=== PATIENT | male | born 1950 | race Caucasian/White ===

== ENCOUNTER 2019-01-05 08:12 | Emergency (ER) | payer MEDICARE, OTHER ==
--- NOTE | 2019-01-05 09:21 | EDM.PDOCBH ---
ED HPI GENERAL MEDICAL PROBLEM - General Chief Complaint: Drug or Alcohol Abuse Stated Complaint: DETOX EVAL Time Seen by Provider: 01/05/19 08:50 Source of Information: Reports: Patient History Limitations: Reports: No Limitations - History of Present Illness INITIAL COMMENTS - FREE TEXT/NARRATIVE: 68-year-old male with chronic alcoholism, sober for over 20 years but started drinking 2 years ago. He's been drinking almost daily, and is requesting to go to treatment and detox. He has hypertension, his only other chronic problem. He denies any pain, no nausea or vomiting, he is otherwise fairly healthy. Duration: Chronic Associated Symptoms: Reports: No Other Symptoms - Related Data Allergies Allergy/AdvReac Type Severity Reaction Status Date / Time No Known Allergies Allergy Verified 01/05/19 08:37 Home Meds: Home Meds Atenolol 25 mg PO DAILY 01/05/19 [History] Irbesartan 150 mg PO DAILY 01/05/19 [History] [place]-3/DHA/Epa/Fish Oil [Fish Oil 1,000 mg Softgel] 1 cap PO DAILY 01/05/19 [ History] atorvaSTATin [Lipitor] 20 mg PO DAILY 01/05/19 [History] Past Medical History Cardiovascular History: Reports: High Cholesterol, Hypertension Neurological History: Reports: Seizure Psychiatric History: Reports: Addiction Social & Family History - Caffeine Use Caffeine Use: Reports: Coffee - Alcohol Use Days Per Week of Alcohol Use: 7 Number of Drinks Per Day: 10 Total Drinks Per Week: 70 - Recreational Drug Use Recreational Drug Use: No ED ROS GENERAL - Review of Systems Review Of Systems: See Below Constitutional: Reports: No Symptoms HEENT: Reports: No Symptoms Respiratory: Reports: No Symptoms Cardiovascular: Reports: No Symptoms GI/Abdominal: Reports: No Symptoms : Reports: No Symptoms Skin: Reports: No Symptoms Neurological: Denies: Headache Psychiatric: Reports: Depression (Patient is tearful, regretful) ED EXAM, BEHAVIORAL HEALTH - Physical Exam Exam: See Below Exam Limited By: No Limitations General Appearance: Alert, No Apparent Distress Eye Exam: Bilateral Eye: Normal Inspection (No jaundice) Head: Atraumatic Neck: Normal Inspection Respiratory/Chest: No Respiratory Distress Cardiovascular: Regular Rate, Rhythm. No: Tachycardia GI/Abdominal: Soft, Non-Tender Extremities: Normal Inspection. No: Pedal Edema Neurological: Alert, Oriented x 3 Psychiatric: Depressed Mood, Flat Affect Skin Exam: Warm, Dry COURSE, BEHAVIORAL HEALTH COMP - Course Vital Signs: Last Vital Signs Temp 95.1 F L 01/05/19 08:46 Pulse 61 01/05/19 08:46 Resp 18 01/05/19 08:46 BP 162/88 H 01/05/19 08:46 Pulse Ox 92 L 01/05/19 08:46 Orders, Labs, Meds: Laboratory Tests 01/05/19 01/05/19 01/05/19 Range/Units 09:14 09:14 09:14 WBC 9.0 (4.5-11.0) K/uL RBC 5.05 (4.30-5.90) M/uL Hgb 16.0 H (12.0-15.0) g/dL Hct 48.8 (40.0-54.0) % MCV 97 (80-98) fL MCH 32 H (27-31) pg MCHC 33 (32-36) % Plt Count 204 (150-400) K/uL Neut % (Auto) 65 (36-66) % Lymph % (Auto) 25 (24-44) % [place] % (Auto) 9 H (2-6) % Eos % (Auto) 1 L (2-4) % Baso % (Auto) 0 (0-1) % Sodium 145 (140-148) mmol/L Potassium 4.1 (3.6-5.2) mmol/L Chloride 107 (100-108) mmol/L Carbon Dioxide 27 (21-32) mmol/L Anion Gap 10.7 (5.0-14.0) mmol/L BUN 12 (7-18) mg/dL Creatinine 0.8 (0.8-1.3) mg/dL Est Cr Clr Drug Dosing 101.26 mL/min Estimated GFR (MDRD) > 60 (>60) Glucose 87 (74-106) mg/dL Calcium 9.5 (8.5-10.1) mg/dL Total Bilirubin 0.4 (0.2-1.0) mg/dL AST 122 H (15-37) U/L ALT 138 H (12-78) U/L Alkaline Phosphatase 92 (46-116) U/L Total Protein 7.6 (6.4-8.2) g/dL Albumin 3.7 (3.4-5.0) g/dL Globulin 3.9 H (2.3-3.5) g/dL Albumin/Globulin Ratio 1.0 L (1.2-2.2) Ethyl Alcohol 250 mg/dL Re-Assessment/Re-Exam: CBC, CMP, lipase and EtOH were obtained and the process to get admitted to detox initiated. EtOH was 0.250. AST and ALT were mildly elevated, rest of his labs were reassuring. Patient was accepted to detox in [facility] and was transferred there by private car. Departure - Departure Time of Disposition: 10:38 Disposition: DC/Tfer to Other Condition: Fair Clinical Impression: Alcohol abuse - Discharge Information Instructions: Alcohol Use Disorder Referrals: PCP,None [Primary Care Provider] - Forms: ED Department Discharge Care Plan Goals: Go to [facility] as planned
== END 2019-01-05 10:38 | disposition other institution (70) ==
LOC: JP.ED 08:12
DX: F10.20 Alcohol dependence, uncomplicated (principal); Y90.8 Blood alcohol level of 240 mg/100 ml or more; I10 Essential (primary) hypertension; E78.00 Pure hypercholesterolemia, unspecified; Z79.899 Other long term (current) drug therapy
CPT/HCPCS: 36415; 80053; 85025; 99284; G0480

== ENCOUNTER 2023-06-26 15:56 | Emergency (ER) | payer MEDICARE, OTHER ==
[2023-06-26] MEDS ORDERED: Bacitracin Oint 1 GM U/D Packet TOP ONE (16:45)
[2023-06-26] MEDS ORDERED: Lidocaine 1% 5 ML VIAL INJECT ONE (16:45)
[2023-06-26] MEDS ORDERED: Diphtheria,Pertussis(Acell),Tetanus Vaccine 0.5 ML Syringe IM ONE (17:52)
[2023-06-26] MEDS ORDERED: Amoxicillin/Clavulanate K 875-125 MG Tab PO ONE (18:14)
== END 2023-06-26 19:11 | disposition home or self-care (01) ==
LOC: JP.ED 15:56
DX: S61.216A Laceration without foreign body of right little finger without damage to nail, initial encounter (principal); E78.00 Pure hypercholesterolemia, unspecified; I10 Essential (primary) hypertension; F17.210 Nicotine dependence, cigarettes, uncomplicated; Z79.899 Other long term (current) drug therapy; Z23 Encounter for immunization; W23.1XXA Caught, crushed, jammed, or pinched between stationary objects, initial encounter
CPT/HCPCS: 12001; 73140; 90471; 90715; 99283; A9270